=== PATIENT | male | born 1950 | race Native Hawaiian/Other Pacific Islander ===

== ENCOUNTER → 2017-04-01 | Outpatient (CLI) | payer OTHER ==
[~2017-04-01] MED LIST: ASPI81CH37 CHEW; ATEN25TA PO; ATOR40TA16 PO; DOXA4TAB3 PO; FENO160T PO; FLAX10002 PO; MULT-159 PO; NITR2OIN RECTAL; TAB-TAB PO; TRAZ50TA12 PO
--- NOTE | 2017-04-01 15:26 | RADRPT ---
EXAM DATE/TIME: 04/01/2017 14:14 [place] COMPARISON: No previous studies available for comparison. INDICATIONS : Hematuria. MEDICAL HISTORY : Hyperlipidemia. Hypertension. Kidney stones. SURGICAL HISTORY : Inguinal hernia repair. ENCOUNTER: Initial ACUITY: 1 day PAIN SCORE: 0/10 LOCATION: Bilateral flank MEASUREMENTS: RIGHT KIDNEY: 12.0 x 4.7 x 4.7 cm LEFT KIDNEY: 10.7 x 6.0 x 5.9 cm FINDINGS: RIGHT KIDNEY: Renal cortex is normal in thickness and echotexture. No hydronephrosis, stone, or mass. Multiple si mple cysts including 2 in the lower pole measuring 23 x 21 x 20 mm and 20 x 18 x 18 mm. One in the up per pole measuring 30 x 18 x 29 mm. LEFT KIDNEY: Renal cortex is normal in thickness and echotexture. No hydronephrosis, stone, or mass. Simple cyst in the mid kidney measuring 21 x 16 x 20 mm. BLADDER: No wall thickening. Enlarged prostate measuring 3.9 x 5.0 x 3.1 cm which protrudes into the base of t he bladder. CONCLUSION: 1. Mass at the base of the bladder likely related to prostatic hypertrophy versus less likely bladder mass. CT urogram recommended for further characterization. 2. Bilateral renal cysts. Chito Srinivasan MD on April 01, 2017 at 15:19 Board Certified Radiologist. This report was verified electronically.
== END ==
LOC: HRAD 14:05
PROVIDERS: ATTEND Urology
DX: R31.29 Other microscopic hematuria (principal)
CPT/HCPCS: 76775